=== PATIENT | male | born 1960 | race Two or more races ===

== ENCOUNTER 2024-09-06 07:21 | Outpatient (CLI) | payer OTHER | END 2024-09-06 07:24 | disposition home or self-care (01) | LOC: NUCLEAR 07:21 | PROVIDERS: ATTEND Internal Medicine | DX: E11.43 Type 2 diabetes mellitus with diabetic autonomic (poly)neuropathy (principal); N11.0 Nonobstructive reflux-associated chronic pyelonephritis ==